=== PATIENT | male | born 1985 | race Caucasian/White ===

== ENCOUNTER 2019-05-03 12:40 | Emergency (ER) | payer MEDICAID ==
[~2019-05-03] VITALS: Ht 177.8 cm; Wt 106.6 kg
[~2019-05-03 12:40] MED LIST: ANAPROX DS550 MG PO; AUGMENTIN 875875 MG PO; BACTRIM DS 8001 TA1 PO; CIPRO500 MG PO; CIPROFLOXACIN500 MG PO; EXFORGE 10 MG-11 TAB PO; FLOMAX0.4 MG PO; HYDROCODONE BIT1 T11 PO; KEFLEX500 MG PO; MOTRIN800 MG PO; NAPROSYN500 MG PO; NKHM; PERCOCET 325 MG1 TA7 PO; SEPTRA DS 800 M1 TAB PO; TRAMADOL HCL50 MG PO; VICODIN 5/500 505 MG PO; VICODIN 500 MG-1 TAB PO; ZANTAC150 MG PO; ZOFRAN ODT4 MG SL; [UNRECOGNIZED DRUG - OTHER]
[2019-05-03] MEDS ORDERED: Tobrex Ophth S2.5 ML OPH (13:43)
[2019-05-03] MEDS ORDERED: IBUPROFEN600 MG PO (13:43)
== END 2019-05-03 13:43 | disposition home or self-care (01) ==
LOC: ED 12:40
DX: H10.9 Unspecified conjunctivitis (principal); Z79.2 Long term (current) use of antibiotics; Z79.899 Other long term (current) drug therapy

== ENCOUNTER 2019-07-17 08:05 | Emergency (ER) | payer MEDICAID ==
[~2019-07-17] VITALS: Ht 177.8 cm; Wt 83.9 kg
[~2019-07-17 08:05] MED LIST changes: +IBUPROFEN600 MG PO; +Tobrex Ophth S2.5 ML OPH
== END 2019-07-17 09:45 | disposition home or self-care (01) ==
LOC: ED 08:05
DX: T40.1X1A Poisoning by heroin, accidental (unintentional), initial encounter (principal); F17.200 Nicotine dependence, unspecified, uncomplicated; Z79.899 Other long term (current) drug therapy; Z79.2 Long term (current) use of antibiotics; Y92.098 Other place in other non-institutional residence as the place of occurrence of the external cause

== ENCOUNTER 2021-02-01 15:03 | Emergency (ER) | payer OTHER ==
[~2021-02-01] VITALS: Ht 177.8 cm; Wt 90.7 kg
== END 2021-02-01 17:15 | disposition left against medical advice (07) ==
LOC: ED 15:03
DX: R00.2 Palpitations (principal); Z79.899 Other long term (current) drug therapy; Z98.890 Other specified postprocedural states

== ENCOUNTER 2023-01-29 19:30 | Inpatient (IN) | payer OTHER ==
[~2023-01-29] VITALS: Ht 177.8 cm; Wt 102.1 kg
[2023-01-29 19:35] VITALS: BP 156/101
[2023-01-29 20:04] LABS: BASO % 0.2 % (0.0-1.0); EOS % 0.2 % (1.0-4.0); HEMATOCRIT 42.1 % (42.0-52.0); LYMPH # 2.3 10*3/uL (1.3-4.4); LYMPH % 19.9 % (27.0-41.0); MEAN CELL VOLUME 86.3 fl (80.0-94.0); MEAN CORPUSCULAR HGB 30.5 pg (27.0-31.0); MEAN CORPUSCULAR HGB CONC 35.4 g/dl (33.0-37.0); MEAN PLATELET VOLUME 10.1 fl (9.6-12.3); MONO # 1.1 10*3/uL (0.1-1.0); MONO % 9.5 % (3.0-9.0); NEUT # 8.1 10*3/uL (2.3-7.9); NEUT % 69.9 % (47.0-73.0); PLATELET COUNT AUTOMATED 147 10*3/uL (130-400); RED BLOOD COUNT 4.88 10*6/uL (4.50-5.90); RED CELL DISTRI WIDTH 13.2 % (0-14.5); WHITE BLOOD COUNT 11.6 10*3/uL (4.8-10.8)
[2023-01-29 20:26] LABS: ALKALINE PHOSPHATASE 73 U/L (46-116); BUN 13 mg/dl (9-23); CHLORIDE 99 mmol/L (98-107); POTASSIUM 3.2 mmol/L (3.4-5.1); SGPT/ALT 123 U/L (10-49); TOTAL PROTEIN 7.8 gm/dL (6.0-8.0)
[2023-01-29 20:52] VITALS: BP 127/89
[2023-01-30 00:07] VITALS: BP 166/70
[2023-01-30 01:20] VITALS: BP 136/71
[2023-01-30 06:32] LABS: BASO % 0.2 % (0.0-1.0); EOS # 0.1 10*3/uL (0.0-0.4); EOS % 1.2 % (1.0-4.0); HEMATOCRIT 43.2 % (42.0-52.0); LYMPH # 1.5 10*3/uL (1.3-4.4); LYMPH % 18.8 % (27.0-41.0); MEAN CELL VOLUME 88.9 fl (80.0-94.0); MEAN CORPUSCULAR HGB CONC 33.8 g/dl (33.0-37.0); MEAN PLATELET VOLUME 10.4 fl (9.6-12.3); MONO % 12.5 % (3.0-9.0); NEUT # 5.4 10*3/uL (2.3-7.9); NEUT % 66.7 % (47.0-73.0); PLATELET COUNT AUTOMATED 149 10*3/uL (130-400); RED BLOOD COUNT 4.86 10*6/uL (4.50-5.90); RED CELL DISTRI WIDTH 13.5 % (0-14.5); WHITE BLOOD COUNT 8.2 10*3/uL (4.8-10.8)
[2023-01-30 06:56] LABS: ALKALINE PHOSPHATASE 63 U/L (46-116); BUN 11 mg/dl (9-23); CHLORIDE 102 mmol/L (98-107); CHOLESTEROL 128 mg/dL (<200); FREE T4 1.35 ng/dl (0.89-1.76); LDL CHOLESTEROL 86 mg/dL (9-159); POTASSIUM 3.9 mmol/L (3.4-5.1); SGPT/ALT 104 U/L (10-49); THYROID STIM HORMONE (HS) 2.534 uIU/ml (0.550-4.780); TOTAL PROTEIN 7.3 gm/dL (6.0-8.0); TRIGLYCERIDES 103 mg/dl (<150)
[2023-01-30 12:00] VITALS: BP 138/74
[2023-01-30] MEDS ORDERED: AMOX-CLAV 875-1 EACH PO (15:17)
[2023-01-30] MEDS ORDERED: LISINOPRIL10 M1 PO (15:18)
[2023-01-31] MEDS ORDERED: PALIPERIDONE ER6 MG PO (21:21)
[2023-01-31] MEDS ORDERED: MIRTAZAPINE45 MG PO (21:22)
[2023-01-31] MEDS ORDERED: Lopressor25 MG PO (21:23)
== END 2023-01-30 17:10 | disposition home or self-care (01) | DRG 313 ==
LOC: ED 19:30 → EDHOLD 21:44
PROVIDERS: Internal Medicine; Student in an Organized Health Care Education/Training Program; ADMIT Internal Medicine; ATTEND Internal Medicine
PROC: 4A02XM4 Measurement of Cardiac Total Activity, External Approach (ICD-10-PCS; principal; 2023-01-30)
PROC: 3E073KZ Introduction of Other Diagnostic Substance into Coronary Artery, Percutaneous Approach (ICD-10-PCS; 2023-01-30)
DX: R07.9 Chest pain, unspecified (principal); L03.211 Cellulitis of face; E87.1 Hypo-osmolality and hyponatremia; I10 Essential (primary) hypertension; K21.9 Gastro-esophageal reflux disease without esophagitis; K08.89 Other specified disorders of teeth and supporting structures; E66.09 Other obesity due to excess calories; E87.6 Hypokalemia; R74.01 Elevation of levels of liver transaminase levels; K04.7 Periapical abscess without sinus; F20.9 Schizophrenia, unspecified; B18.2 Chronic viral hepatitis C; Z82.49 Family history of ischemic heart disease and other diseases of the circulatory system; Z79.1 Long term (current) use of non-steroidal anti-inflammatories (NSAID); Z79.899 Other long term (current) drug therapy

== ENCOUNTER 2023-01-31 21:00 | Emergency (ER) | payer OTHER ==
[~2023-01-31] VITALS: Ht 177.8 cm; Wt 103.9 kg
[~2023-01-31 21:00] MED LIST changes: +AMOX-CLAV 875-1 EACH PO; +LISINOPRIL10 M1 PO
[2023-01-31] MEDS ORDERED: PALIPERIDONE ER6 MG PO (21:21)
[2023-01-31] MEDS ORDERED: MIRTAZAPINE45 MG PO (21:22)
[2023-01-31] MEDS ORDERED: Lopressor25 MG PO (21:23)
== END 2023-02-01 00:15 | disposition home or self-care (01) ==
LOC: ED 21:00
DX: S40.851A Superficial foreign body of right upper arm, initial encounter (principal); I10 Essential (primary) hypertension; K21.9 Gastro-esophageal reflux disease without esophagitis; Z79.899 Other long term (current) drug therapy; W45.8XXA Other foreign body or object entering through skin, initial encounter; Y93.89 Activity, other specified; Y92.89 Other specified places as the place of occurrence of the external cause; Y99.8 Other external cause status